=== PATIENT | female | born 1950 | race Two or more races ===

== ENCOUNTER 2025-02-09 09:50 | Outpatient (AMB) | payer OTHER, SELFPAY ==
--- NOTE | 2025-02-09 09:54 | A.OFFPC_ITS ---
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 Accompanied by: Son Allergies No Known Allergies Allergy (Verified 02/09/25 10:02) Medication List - Last Reconciled 02/09/25 by Igor Barry MD apixaban (Eliquis) 5 mg PO BID flecainide 50 mg PO Q12H irbesartan 150 mg PO DAILY metoprolol succinate ER 25 mg PO Q12H ondansetron HCl 4 mg PO ONCE PRN pantoprazole (Protonix) 40 mg PO DAILY Tobacco use date assessed: 02/09/25 Fall risk assessment: 2 + Falls in past year Last assessed Fall Risk: 02/09/25 Dental Screening Dental Screen Date: 02/09/25 Did you have a dental visit in the last 12 months?: Yes Did you have a dental problem in the last 6 months where you did not have access to dental care?: No Was dental information given to patient?: No HPI HPI Comments History of Present Illness Details History of Present Illness The patient is a 74-year-old female presenting with advanced ampullary/pancreatic head adenocarcinoma. Advanced ampullary/pancreatic head adenocarcinoma: The patient was diagnosed following the presentation of jaundice, pruritus, dark urine, and significant weight loss. She underwent an imaging workup which revealed a mass at the pancreatic head and was further complicated by a duodenal narrowing. Pathology confirmed duodenal adenocarcinoma. In [place], she underwent emergency palliative double bypass surgery following endoscopic ultrasound findings. No curative resection is currently possible due to the aforementioned complications. She was referred for chemotherapy due to non- operability. 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 Hypertension: The patient has a history of hypertension managed with medications including valsartan and metoprolol previosuly. Atrial fibrillation: Present and treated with metoprolol. The condition is relevant in the context of her overall cardiac health and surgical considerations. Surgical History: - Palliative double bypass surgery follo wing endoscopic ultrasound in [place], November 14, 2024 Medications: - Apixaban, 5 mg, twice daily, for super ior mesenteric vein clot - Metoprolol, 25 mg, twice daily, for hy pertension and atrial fibrillation - Valsartan, 150 mg, once daily, for hyp ertension - Flecainide, 100 mg, every 12 hours, fo r atrial fibrillation - Pantoprazole, 40 mg, as needed for gas trointestinal symptoms - Ondansetron, as needed for nausea Social History: - Resides in [place] with family - History of non-smoking - Does not consume alcohol - Recently relocated from [place] - Family support is actively involved in care - Dietary habits include attempts to con sume more natural, healthy foods despite decreased appetite due to illness Family History: - No family history of smoking or alcoho l use - No family history of chronic illnesses reported during the visit Diagnostic Results: - CT and MRI noted a mass at pancreatic head/ampullary region, severe duodenal narrowing - MRI noted a 3.3 cm cystic lesion in th e pancreatic head - PET-CT scan reported increased FDG upt naveed in the pancreatic head/ampullary region and adjacent duodenum; no distant metastases confirmed - Elevated tumor markers (CA [id number], CEA: 28.9), January 2025 Past Medical History - Hypertension - Atrial fibrillation - Tuberculosis, treated successfully wit h hospitalization and medication Health Maintenance - Mammography: Completed in December, results unremarkable - Colonoscopy: Completed February 2024, r stephen unremarkable [facility] Family History (Updated 02/09/25 @ 10:12 by Reinier Sears MA) Father No problems noted. Mother Diabetes Alzheimer dementia Social History Housing: House Patient Tobacco Use Status: Never used Tobacco service: No Current occupational status: retired Cognitive needs: Yes Hearing needs: No Vision needs: Yes (reading glasses) Questionnaire PHQ-9 Over the last 2 weeks, how often have you been bothered by any of the following problems? 1. Little interest or pleasure in doing things: more than half the days 2. Feeling down, depressed, or hopeless: more than half the days 3. Trouble falling or staying asleep, or sleeping too much: more than half the days 4. Feeling tired or having little energy: more than half the days 5. Poor appetite or overeating: more than half the days 6. Feeling bad about yourself - or that you are a failure or have let yourself or your family down: several days 7. Trouble concentrating on things, such as reading the newspaper or watching television: several days 8. Moving or speaking so slowly that other people could have noticed. Or the opposite - being so fidgety or restless that you have been moving around a lot more than usual: several days 9. Thoughts that you would be better off or of hurting yourself in some way: not at all Total score: 13 Depression Screening Interpretation: Positive Depression Screening Done: Yes Source: Developed by Drs. Drake Ram, Jyothi Wheatley, Jaxson Man and colleagues, with an educational yaa from [employer]. Thrive Questionnaire Date Thrive assessed: 02/09/25 I am a: Patient What is your living situation today?: I have a steady place to live Within the past 12 months, did the food you bought not last and you didn't have the money to get more?: I choose not to answer this question Within the past 12 months, did you worry whether your food would run out before you got money to buy more?: Sometimes True Do you have trouble paying for medicines?: I choose not to answer this question Do you have trouble getting transportation to medical appointments?: No Do you have trouble paying your heating and electricity bill?: No Do you have trouble taking care of your child, family member or friend?: No Do you have trouble with day-to-day activities such as bathing, preparing meals, shopping, managing finances, etc.?: Yes Are you currently unemployed and looking for a job?: No Are you interested in more education?: I choose not to answer this question Currently or been in a relationship where the following occur: No concerns reported THRIVE Score: 1 AUDIT C Alcohol Use Questionnaire (AUDIT-C) 1. How often do you have a drink containing alcohol?: Never Total Score: 0 PHIL-7 AMB Questionnaire PHIL-7 Date PHIL - 7 assessed: 02/09/25 Feeling nervous, anxious, or on edge: 1 = Several days Not being able to stop or control worryin = More than half the days Worrying too much about different things: 2 = More than half the days Trouble relaxin = More than half the days Being so restless that it is hard to sit still: 2 = More than half the days Becoming easily annoyed or irritable: 1 = Several days Feeling afraid as if something awful might happen: 3 = Nearly every day Total PHIL-7 score (0-4 normal; 5-9 mild; 10-14 moderate; 15-21 severe): 13 Source: Developed by Drs. Drake Ram, Jyothi Wheatley, Jaxson Man and colleagues, with an educational yaa from [employer]. Review of Systems Narrative Review of Systems - Gastrointestinal: Reports prior jaundice, pruritus, dark urine, and light- colored stools - Musculoskeletal: Denies joint swelling or deformity - Neurological: Denies weakness, reports full strength and coordination - Psychiatric: Reports stress regarding cancer diagnosis; denies depression, has support from mona and family 10-point ROS reviewed and negative except as noted in HPI Physical exam (Primary Care) Vital Signs: Last Vital Signs Temp 98.1 F 02/09/25 09:59 Pulse 74 02/09/25 09:59 Resp 16 02/09/25 09:59 BP 145/66 H 02/09/25 09:59 Pulse Ox 96 02/09/25 09:59 Oxygen Delivery Method Room Air 02/09/25 09:59 BMI result Body Mass Index 26.6 Tobacco/Smoking Status: Tobacco use Status Tobacco use date assessed 02/09/25 02/09/25 10:17 Patient Tobacco Use Status Never used Tobacco 02/09/25 10:17 PHQ-9: PHQ-9 Score PHQ-9: Total score 13 02/09/25 10:31 Depression Screening Interpretation: Positive Thrive Assessment: Date of Thrive Assessment Date Thrive assessed 02/09/25 02/09/25 10:17 Currently or been in a relationship where the following occur: No concerns reported Narrative Physical Exam General: Well-appearing, in no acute distress. Vital signs: Within normal limits. HEENT: Normocephalic, atraumatic. PERRLA, EOMI. Conjunctiva clear, sclera anicteric. Oropharynx clear, mucous membranes moist. TMs intact bilaterally. Neck: Supple, no lymphadenopathy, no thyromegaly, no JVD or carotid bruits. Cardiovascular: RRR, normal S1/S2, no murmurs, rubs, or gallops. Peripheral pulses 2+ and symmetric. No edema. Respiratory: Lungs clear to auscultation bilaterally, no wheezes, rales, or rhonchi. Normal effort. Abdomen: Soft, non-tender, non-distended. Normoactive bowel sounds. No hepatosplenomegaly, no masses. MSK: Full range of motion, no joint swelling or deformity. Normal gait. Skin: Warm, dry, intact. No rashes, lesions, or pallor. There is a vertical incision about 6 inches midline. Neuro: Alert and oriented x3. Cranial nerves II-XII intact. Strength 5/5 throughout. Sensation intact. Reflexes 2+ symmetric. Normal coordination and gait. Psych: Appropriate mood and affect. Normal judgment and insight. Coding Level of Care Code New Pt Level 4 (59521) Add On Problem Visit Only Diagnoses Hypertension I10 Superior mesenteric vein thrombosis K55.069 Adenocarcinoma of pancreas C25.9 Atrial fibrillation I48.91 Complex care coordination Z71.89 Assessment & Plan Assessment & Plan (1) Hypertension: Code(s): I10 - Essential (primary) hypertension Category: Medical (2) Superior mesenteric vein thrombosis: Code(s): K55.069 - Acute infarction of intestine, part and extent unspecified Category: Medical (3) Adenocarcinoma of pancreas: Code(s): C25.9 - Malignant neoplasm of pancreas, unspecified Category: Medical (4) Atrial fibrillation: Code(s): I48.91 - Unspecified atrial fibrillation Category: Medical (5) Complex care coordination: Code(s): Z71.89 - Other specified counseling Category: Medical Plan Consent Patient was informed and verbally consented to the use of an ambient scribe for clinic note documentation during this visit. Plan 1. Advanced Ampullary/Pancreatic Head Adenocarcinoma - Chemotherapy recommended as per Oncology using FOLFIRINOX or gemcitabine-based regimen - Routine imaging and laboratory evaluations for treatment response - Surgical options will be reconsidered based on treatment progress 2. Superior Mesenteric Vein Clot - Continue anticoagulation with apixaban - Avoid any invasive procedures that may precipitate bleeding 3. Hypertension - Continue current antihypertensive regimen with valsartan and metoprolol 4. Atrial Fibrillation - Continue antiarrhythmic management with metoprolol and flecainide - Monitor for rhythm and rate control effectiveness Discussion Notes Importance of adhering to anticoagulation therapy was emphasized. Her prefere nces and cheondoism beliefs, particularly regarding blood transfusions, were taken into account in treatment planning. We also touched on supportive care strategies, including nutritional support, and the role of her mona and family in her care management. Patient Instructions - Continue taking medications as prescribed, especially apixaban, valsartan, metoprolol, and flecainide - Maintain nutritional intake to support overall health during chemotherapy - Attend all scheduled chemotherapy sessions - Seek immediate care if experiencing severe abdominal pain, bleeding, or other emergent symptoms - Ensure follow-up appointments with oncology and cardiology are kept - Contact our office if there are any questions or concerns regarding treatments or medications Medical Decision Making The patient presents with advanced ampullary/pancreatic head adenocarcinoma, a complex case further complicated by a superior mesenteric vein clot requiring anticoagulation, which precludes a surgical approach at this time. Chemotherapy is the preferred treatment modality due to the severity and non-resectability of the cancer at this point. The choice of FOLFIRINOX or a gemcitabine-based regimen reflects the aggressive nature of the malignancy. Ongoing assessment of treatment response through imaging and blood markers will guide future therapeutic strategies, with the potential for surgical reconsideration if tumor burden decreases. Balancing her treatment with her beliefs as a Gnosticism regarding blood transfusions was considered significant in determining her treatment path. Close monitoring by medical oncology will ensure timely adaptations to her treatment plan as needed amidst potential complications. Total Time Statement 45 min Total time spent caring for the patient today includes pre-visit chart review, documentation, review of laboratory and diagnostic imaging results, medication reconciliation, medically necessary evaluation, counseling on diagnoses, care coordination, ordering appropriate tests and medications, review of tests performed by other providers, reporting test results to the patient, and communication with other healthcare providers. Orders: Orders Hepatitis B Surface Antigen Today Z13.9 - Encounter for screening, unspecified MM diagnostic mammo BI Today Z12.31 - Encounter for screening mammogram for malignant neoplasm of breast Complete Blood Count Auto Diff Today Z13.9 - Encounter for screening, unspecified Syphilis Screen Today Z13.9 - Encounter for screening, unspecified Comprehensive Met. Panel Today Z13.9 - Encounter for screening, unspecified Hepatitis C Antibody Today Z13.9 - Encounter for screening, unspecified TSH reflex Free T4 Today Z13.9 - Encounter for screening, unspecified HIV Ab/Ag Today Z13.9 - Encounter for screening, unspecified UA CC w/rflx Micro + Cult Today Z13.9 - Encounter for screening, unspecified Lipid Panel Today Z13.9 - Encounter for screening, unspecified Vitamin B12 and Folate Today Z13.9 - Encounter for screening, unspecified Hemoglobin A1c Today Z13.9 - Encounter for screening, unspecified Magnesium Today Z13.9 - Encounter for screening, unspecified Hepatitis B Surface Antibody Today Z13.9 - Encounter for screening, unspecified Vitamin D 25-OH (D2 and D3) Today Z13.9 - Encounter for screening, unspecified US breast RT complete Today Z12.31 - Encounter for screening mammogram for malignant neoplasm of breast US breast LT complete Today Z12.31 - Encounter for screening mammogram for malignant neoplasm of breast Referrals Nurse Navigator Referral Z71.89 - Other specified counseling Cardiology Referral I48.91 - Unspecified atrial fibrillation Medications: New irbesartan 150 mg PO DAILY 90 tabs 0RF pantoprazole (Protonix) 40 mg PO DAILY 90 tabs 0RF apixaban (Eliquis) 5 mg PO BID 180 tabs 0RF flecainide 50 mg PO Q12H 180 tabs 0RF metoprolol succinate ER 25 mg PO Q12H 180 tabs 0RF ondansetron HCl 4 mg PO ONCE PRN 14 tabs 0RF nausea and vomiting triamcinolone acetonide 0.1% 1 appl topical DAILY 80 grams 0RF
[2025-02-09 09:59] VITALS: BP 145/66; PULSE 74; RESP 16; TEMP 36.7; O2SAT 96; BMI 26.6
== END 2025-02-09 11:03 | disposition home or self-care (01) ==
PROVIDERS: PCP Student in an Organized Health Care Education/Training Program; Visit Provider Student in an Organized Health Care Education/Training Program
DX: I10 Essential (primary) hypertension (principal); K55.069 Acute infarction of intestine, part and extent unspecified; C25.9 Malignant neoplasm of pancreas, unspecified; I48.91 Unspecified atrial fibrillation; Z71.89 Other specified counseling